=== PATIENT | male | born 1960 | race Caucasian/White ===

== ENCOUNTER 2024-03-17 16:01 | Inpatient (IN) ==
--- NOTE | 2024-03-17 16:11 | Emergency Department Note ---
Impression & Plan Syncope and collapse, Alcohol intoxication, Multiple rib fractures ED Provider Note HISTORY OF PRESENT ILLNESS: Patient is a 63-year-old male presenting after syncopal episode. Patient reportedly was at the football game when a call for EMS got sent out for "cardiac arrest." Bystanders report the patient was standing upright and then the next second he was down on the ground. No reported seizure-like activity. Patient is intoxicated and amnestic to the event. He denies any anticoagulation use. Denies any pain complaints on arrival to the ER. ROS: as above PHYSICAL EXAM: Constitutional: Patient appears in no acute distress. Patient is visibly intoxicated and slurring his speech. HENT: Head: Normocephalic and atraumatic. Eyes: EOMI, PERRL Mouth/Throat: Mucous membranes moist. Neck: Trachea midline. Neck supple. No midline cervical spine tenderness to palpation. Cardiovascular: RRR, No murmurs, rubs or gallops. Intact distal pulses. Pulmonary/Chest: No respiratory distress. Breath sounds clear and equal bilaterally. No wheezes or rales. Abdominal: Abdomen soft, no tenderness, rebound or guarding. Musculoskeletal: No edema, tenderness or deformity noted. Skin: Warm and dry. No rash, erythema, pallor or cyanosis Neurological: Alert. CN II-XII grossly intact, moving all extremities equally and fully. MDM: - Vitals signs showed hypertension - History obtained via patient and EMS, given patient's intoxication. History as above. - Chronic conditions affecting care: None - Differential diagnoses include, but are not limited to: electrolyte abnormality; intracranial hemorrhage; ACS; rib fracture; pneumothorax; PE; dissection - Order placed for continuous cardiac monitoring. At this time, monitor showed rate of 72 bpm with normal sinus rhythm, per my interpretation. - External medical records reviewed. - EKG interpreted by myself showed normal sinus rhythm. Rate 68 bpm. QT 440. No acute ischemic changes. - Laboratory workup interpreted by myself showed normal WBC; normal hemoglobin; normal PT/INR; stable electrolytes; normal troponin; elevated alcohol (413.4) - CXR negative for pneumonia, per my interpretation - CT head wo contrast negative for acute intracranial pathology - CT cervical spine wo contrast negative for acute injury - CTA chest showed acute fractures of the left seventh and eighth ribs. Noted to have a 8 x 6 mm pleural hematoma adjacent to the seventh rib fracture without any underlying pleural effusion or pneumothorax. - Considered CT abdomen/pelvis with IV contrast, but patient has no evidence of ecchymosis or injury to the abdomen and no reproducible tenderness on examination. - Patient did well with incentive spirometry and saturations remained >93% on room air. Patient syncope likely secondary to his alcohol intoxication, but he is greater than 60 years old and had no presyncopal symptoms prior to passing out. Will admit to hospital service for further evaluation. - Discussion was had with high risk case manager about patient's case and need for admission - Hospitalist, Dr. Iqbal, consulted for admission - Patient admitted to [facility] service for further evaluation and management. ASSESSMENT AND PLAN: Diagnosis: syncope and collapse; alcohol intoxication; multiple rib fractures Plan: admit Past Med/Surg History Problem List (Updated 03/17/24 @ 18:34 by Mary Berry MD) Multiple rib fractures (Acute) Alcohol intoxication (Acute) Syncope and collapse (Acute) Social History Smoking Status: Current every day smoker Preferred Language: Azeri Feels Safe at Home: Yes Home Meds Home Medications Medication Instructions Recorded Confirmed bisacodyl 5 mg tablet,delayed 20 mg PO DAILY PRN Constipation 03/17/24 03/17/24 release polyethylene glycol 3350 17 17 g PO UD 03/17/24 03/17/24 gram/dose oral powder Results & Data (ED) Vital Signs Vital Signs - 24 hr 03/17/24 16:16 03/17/24 16:26 03/17/24 16:43 Temperature 36.5 C Temperature Source Oral Pulse Rate 69 67 Pulse Rate [Apical] Pulse Rate from SpO2 Sensor Respiratory Rate 21 Blood Pressure 140/93 Blood Pressure [Left Arm] Blood Pressure Mean 108 Blood Pressure Mean [Left Arm] Blood Pressure Position Semi-fowlers Pulse Oximetry 92 Oxygen Delivery Method Room Air Room Air Sepsis Recent Fever Within 48 Hours No Sepsis New/Unexplained Change in Mental Status No Sepsis Action Taken by Nursing No Action Required 03/17/24 16:51 03/17/24 17:30 03/17/24 17:33 Temperature Temperature Source Pulse Rate 63 71 Pulse Rate [Apical] Pulse Rate from SpO2 Sensor 73 Respiratory Rate 21 25 H Blood Pressure 151/97 H Blood Pressure [Left Arm] Blood Pressure Mean 110 Blood Pressure Mean [Left Arm] Blood Pressure Position Pulse Oximetry 93 Oxygen Delivery Method Room Air Sepsis Recent Fever Within 48 Hours Sepsis New/Unexplained Change in Mental Status Sepsis Action Taken by Nursing 03/17/24 17:54 03/17/24 18:00 03/17/24 18:00 Temperature Temperature Source Pulse Rate 71 Pulse Rate [Apical] 72 Pulse Rate from SpO2 Sensor 71 Respiratory Rate 20 14 Blood Pressure 169/108 H Blood Pressure [Left Arm] 169/108 H Blood Pressure Mean 120 Blood Pressure Mean [Left Arm] 128 Blood Pressure Position Pulse Oximetry 95 93 Oxygen Delivery Method Room Air Room Air Sepsis Recent Fever Within 48 Hours Sepsis New/Unexplained Change in Mental Status Sepsis Action Taken by Nursing 03/17/24 18:30 03/17/24 18:30 Temperature Temperature Source Pulse Rate 70 Pulse Rate [Apical] Pulse Rate from SpO2 Sensor 70 Respiratory Rate 18 Blood Pressure 157/102 H Blood Pressure [Left Arm] Blood Pressure Mean 110 Blood Pressure Mean [Left Arm] Blood Pressure Position Pulse Oximetry 93 Oxygen Delivery Method Room Air Sepsis Recent Fever Within 48 Hours Sepsis New/Unexplained Change in Mental Status Sepsis Action Taken by Nursing Laboratory Data 03/17/24 16:00 03/17/24 16:00 Lab Results 03/17/24 03/17/24 Range/Units 16:00 18:30 WBC 7.35 (4.8-10.8) K/ul RBC 4.40 L (4.70-6.10) M/uL Hgb 15.5 (14.0-18.0) g/dl Hct 45.2 (42.0-52.0) % MCV 102.7 H (80.0-100.0) fL MCH 35.2 H (25.0-34.0) pg MCHC 34.3 (32.0-36.0) g/dL RDW Std Deviation 44.8 (36.4-46.3) fL RDW Coeff of [place] 11.8 (11.5-14.5) % Plt Count 185 (130-400) K/uL MPV 10.0 (9.4-12.4) fL Immature Gran % (Auto) 0.4 % Neut % (Auto) 51.2 % Lymph % (Auto) 35.5 % Millard % (Auto) 11.0 % Eos % (Auto) 1.1 % Baso % (Auto) 0.8 % Neut # (Auto) 3.76 (1.40-6.50) K/uL Lymph # (Auto) 2.61 (1.20-3.40) K/uL Millard # (Auto) 0.81 H (0.11-0.59) K/uL Eos # (Auto) 0.08 (0.00-0.50) K/uL Baso # (Auto) 0.06 (0.00-0.20) K/uL Immature Gran # (Auto) 0.03 (0.01-0.20) K/uL PT 10.9 (9.0-12.0) Seconds INR 1.0 (0.9-1.1) Sodium 141 (136-145) mmol/L Potassium 3.9 (3.5-5.1) mmol/L Chloride 106 (98-107) mmol/L Carbon Dioxide 26 (21-32) mmol/L Anion Gap 9 (3-11) BUN 10 (6-23) mg/dl Creatinine 0.80 (0.6-1.4) mg/dl Est Cr Clr Drug Dosing 126.2 ml/min eGFR 99.44 BUN/Creatinine Ratio 12.5 (10-20) Glucose 122 H (70-99(Fasting)) mg/dl Calcium 8.7 (8.6-10.3) mg/dl Magnesium 2.0 (1.7-2.4) mg/dl Total Bilirubin 0.6 (0.2-1.0) mg/dl AST 95 H (13-39) U/L ALT 49 (7-52) U/L Alkaline Phosphatase 50 (34-104) U/L Troponin I High Sens 19.7 18.1 (0-20) pg/ml Total Protein 7.7 (6.0-8.3) gm/dl Albumin 4.4 (3.4-5.0) gm/dl Globulin 3.3 (2.5-4.0) gm/dl Albumin/Globulin Ratio 1.3 (0.9-2) Ethyl Alcohol mg/dL 413.4 H (<10.0) mg/dl Administered Medications Discontinued Medications Ioversol (Optiray 320 125ml) 119 ml IV ONCE ONE Stop: 03/17/24 17:16 Last Admin: 03/17/24 17:16 Dose: 119 ml Documented By: EDK Imaging Data Radiologist's Impression: Chest X-Ray 03/17/24 16:08 EXAM: Radiograph of the Chest 1 View INDICATION: Syncope. TECHNIQUE: Frontal view of the chest. COMPARISON: No relevant prior studies available. FINDINGS: Lungs and pleural spaces: Shallow inspiration with basilar vascular crowding. There is mild superimposed atelectasis along the right heart border. No consolidation or pulmonary edema. Heart: Prominent cardiac shadow accentuated by technique and inspiratory effort. Mediastinum: Normal contour. Bones/joints: No fracture, erosion or dislocation. Soft tissues: No abnormality noted. No radiopaque foreign body noted. Upper abdomen: No abnormality noted. IMPRESSION: Minimal atelectasis right base. ACT 112: Negative or not required by law. Electronically signed by Alayna Kwan 03-17-2024 4:[address] 03/17/24 16:28 EXAM: CT Cervical Spine Without Intravenous Contrast INDICATION: Syncope versus trip and fall. TECHNIQUE: Axial computed tomography images of the cervical spine without intravenous contrast. Sagittal and coronal reformatted images were created and reviewed. This CT exam was performed using one or more of the following dose reduction techniques: automated exposure control, adjustment of the mA and/or kV according to patient size, and/or use of iterative reconstruction technique. COMPARISON: No relevant prior studies available. FINDINGS: Limitations: None. Vertebrae: There is generalized tilting of the spine to the right which may be positional. There is increased lower cervical lordosis. There is moderate to severe facet arthrosis worse on the left at all levels. There is mild to moderate spondylosis. Spondylosis most notable and associated with uncal spurring at C5-C6. No fracture or traumatic subluxation noted. Discs/spinal canal/neural foramina: There is moderate to severe disc space narrowing C5-C6 and C6-C7. Mild narrowing noted at C3-C4. There is mild central canal and moderate right foraminal stenosis at this level. Moderate to severe canal and right greater than left foraminal stenosis at C5-C6 and C6-C7. Soft tissues: No significant abnormality noted. Vasculature: Bilateral cervical carotid atherosclerotic plaque noted. Sinuses: There is chronic mucosal thickening left maxillary sinus. Lung apices: No significant abnormality noted. IMPRESSION: 1. No fracture. Significant multilevel degenerative changes are present. 2. There is chronic mucosal thickening left maxillary sinus. ACT 112: Negative or not required by law. Electronically signed by Alayna Kwan 03-17-2024 5:43 PM Chest CTA 03/17/24 16:28 EXAM: CT Angiography Chest Without and With Intravenous Contrast INDICATION: Fall. TECHNIQUE: Axial computed tomographic angiography images of the chest without and with intravenous contrast. Sagittal and coronal reformatted images were created and reviewed. This CT exam was performed using one or more of the following dose reduction techniques: automated exposure control, adjustment of the mA and/or kV according to patient size, and/or use of iterative reconstruction technique. MIP reconstructed images were created and reviewed. CONTRAST: 119ml of Optiray 320 was administered intravenously. COMPARISON: No relevant prior studies available. FINDINGS: Limitations: Assessment of lower lobe pulmonary arterial structures limited due to motion. Pulmonary arteries: No definite pulmonary embolus noted. There is limited assessment of the right lower lobe due to artifact. Aorta: There is mild calcification of the aortic valve and root. There is mild ectasia of the ascending segment without aneurysm. There is no dissection. Scattered calcific plaque noted in the descending aorta. Great vessels of aortic arch: There is mild calcific plaque at the origin of the left common carotid artery. Other arteries: There is mild proximal calcific plaque in the bilateral subclavian arteries. No dissection or aneurysm. No occlusion. Lungs and pleural spaces: See findings above and below. Heart: Global cardiomegaly. The left ventricle may be slightly hypertrophied. No significant pericardial effusion. No evidence of RV dysfunction. Bones/joints: There is an approximate 8 x 6 mm pleural hematoma subjacent to the seventh rib fracture. No pleural effusion or pneumothorax. There are acute fractures of the left eighth and ninth ribs. Old left sixth rib fracture. The sternum, visualized portions of the shoulders and the spinal segments appear intact. There is mild scoliotic curvature of the spine with diffuse mild degenerative spondylosis. Soft tissues: No abnormality noted. Lymph nodes: No abnormality noted. No enlarged lymph nodes. IMPRESSION: 1. Acute fractures left seventh and eighth ribs. 2. There is an approximate 8 x 6 mm pleural hematoma subjacent to the seventh rib fracture. No pleural effusion or pneumothorax. ACT 112: Negative or not required by law. Electronically signed by Alayna Kwan 03-17-2024 5:[address] 03/17/24 16:28 EXAM: CT Head Without Intravenous Contrast INDICATION: Syncope versus trip and fall. TECHNIQUE: Axial computed tomography images of the head/brain without intravenous contrast. Sagittal and/or coronal reformats are provided. Sagittal and coronal reformatted images were created and reviewed. This CT exam was performed using one or more of the following dose reduction techniques: automated exposure control, adjustment of the mA and/or kV according to patient size, and/or use of iterative reconstruction technique. COMPARISON: No relevant prior studies available. FINDINGS: Limitations: None. Brain and extra-axial spaces: There is age appropriate cortical atrophy and chronic ischemic periventricular white matter hypodensity. No acute infarct, hemorrhage or mass noted. Bones/joints: No acute changes. Soft tissues: No significant abnormality noted. Vasculature: No acute abnormality noted. Sinuses: Moderate chronic left maxillary sinus thickening. No layering fluid. Mastoid air cells: No mastoid effusion. Orbits: No significant abnormality noted. IMPRESSION: 1. Cerebral atrophy. No acute changes. 2. Mild to moderate chronic left maxillary sinusitis. ACT 112: Negative or not required by law. Electronically signed by Alayna Kwan 03-17-2024 5:38 PM Discharge Plan Visit Data Chief Complaint: Fall Stated Complaint: ETOH, FALL, POSSIBLE SYNCOPE, ED Provider: Mary Berry Discharge Problem: Syncope and collapse, Alcohol intoxication, Multiple rib fractures Forms Stand Alone Forms: [facility] Prescriptions Prescriptions: No Action bisacodyl 5 mg tablet,delayed release (DR/EC) 20 mg PO DAILY PRN (Reason: Constipation) Rx Instructions: UP TO 30 DAYS polyethylene glycol 3350 17 gram/dose powder 17 g PO UD Referrals Referrals: PCP,NO [Primary Care Provider] -
[2024-03-17 16:26] LABS: Basophils # (auto) 0.06 K/uL (0.00-0.20); Basophils % (auto) 0.8 %; Eosinophils # (auto) 0.08 K/uL (0.00-0.50); Eosinophils % (auto) 1.1 %; Hematocrit (blood only) 45.2 % (42.0-52.0); Hemoglobin 15.5 g/dl (14.0-18.0); Immature Granulocytes # (auto) 0.03 K/uL (0.01-0.20); Immature Granulocytes % (auto) 0.4 %; Lymphocytes # (auto) 2.61 K/uL (1.20-3.40); Lymphocytes % (auto) 35.5 %; Mean Corpuscular Hemoglobin 35.2 pg (25.0-34.0); Mean Corpuscular Hgb Conc 34.3 g/dL (32.0-36.0); Mean Corpuscular Volume 102.7 fL (80.0-100.0); Monocytes # (auto) 0.81 K/uL (0.11-0.59); Neutrophils # (auto) 3.76 K/uL (1.40-6.50); Neutrophils % (auto) 51.2 %; Platelet Count 185 K/uL (130-400); RDW Coefficient of Variation 11.8 % (11.5-14.5); RDW Standard Deviation 44.8 fL (36.4-46.3); White Blood Count 7.35 K/ul (4.8-10.8)
--- NOTE | 2024-03-17 16:38 | XRay Report ---
EXAM: Radiograph of the Chest 1 View INDICATION: Syncope. TECHNIQUE: Frontal view of the chest. COMPARISON: No relevant prior studies available. FINDINGS: Lungs and pleural spaces: Shallow inspiration with basilar vascular crowding. There is mild superimposed atelectasis along the right heart border. No consolidation or pulmonary edema. Heart: Prominent cardiac shadow accentuated by technique and inspiratory effort. Mediastinum: Normal contour. Bones/joints: No fracture, erosion or dislocation. Soft tissues: No abnormality noted. No radiopaque foreign body noted. Upper abdomen: No abnormality noted. IMPRESSION: Minimal atelectasis right base. ACT 112: Negative or not required by law. Electronically signed by Alayna Kwan 03-17-2024 4:38 PM
[2024-03-17 16:48] LABS: Albumin Globulin Ratio 1.3 (0.9-2); Albumin Level 4.4 gm/dl (3.4-5.0); BUN Creatinine Ratio 12.5 (10-20); Bilirubin,Total 0.6 mg/dl (0.2-1.0); Calcium 8.7 mg/dl (8.6-10.3); Creatinine Clr Calc Pharmacy 126.2 ml/min; Globulin 3.3 gm/dl (2.5-4.0); Potassium 3.9 mmol/L (3.5-5.1); Total Protein 7.7 gm/dl (6.0-8.3)
[2024-03-17 16:51] LABS: Prothrombin Time 10.9 Seconds (9.0-12.0)
[2024-03-17 16:56] LABS: Troponin I High Sensitivity 19.7 pg/ml (0-20)
[2024-03-17] MEDS: OPTIRAY 320 125ml IV ONE (17:16)
--- NOTE | 2024-03-17 17:38 | CT Scan Report ---
EXAM: CT Head Without Intravenous Contrast INDICATION: Syncope versus trip and fall. TECHNIQUE: Axial computed tomography images of the head/brain without intravenous contrast. Sagittal and/or coronal reformats are provided. Sagittal and coronal reformatted images were created and reviewed. This CT exam was performed using one or more of the following dose reduction techniques: automated exposure control, adjustment of the mA and/or kV according to patient size, and/or use of iterative reconstruction technique. COMPARISON: No relevant prior studies available. FINDINGS: Limitations: None. Brain and extra-axial spaces: There is age appropriate cortical atrophy and chronic ischemic periventricular white matter hypodensity. No acute infarct, hemorrhage or mass noted. Bones/joints: No acute changes. Soft tissues: No significant abnormality noted. Vasculature: No acute abnormality noted. Sinuses: Moderate chronic left maxillary sinus thickening. No layering fluid. Mastoid air cells: No mastoid effusion. Orbits: No significant abnormality noted. IMPRESSION: 1. Cerebral atrophy. No acute changes. 2. Mild to moderate chronic left maxillary sinusitis. ACT 112: Negative or not required by law. Electronically signed by Alayna Kwan 03-17-2024 5:38 PM
--- NOTE | 2024-03-17 17:44 | CT Scan Report ---
EXAM: CT Cervical Spine Without Intravenous Contrast INDICATION: Syncope versus trip and fall. TECHNIQUE: Axial computed tomography images of the cervical spine without intravenous contrast. Sagittal and coronal reformatted images were created and reviewed. This CT exam was performed using one or more of the following dose reduction techniques: automated exposure control, adjustment of the mA and/or kV according to patient size, and/or use of iterative reconstruction technique. COMPARISON: No relevant prior studies available. FINDINGS: Limitations: None. Vertebrae: There is generalized tilting of the spine to the right which may be positional. There is increased lower cervical lordosis. There is moderate to severe facet arthrosis worse on the left at all levels. There is mild to moderate spondylosis. Spondylosis most notable and associated with uncal spurring at C5-C6. No fracture or traumatic subluxation noted. Discs/spinal canal/neural foramina: There is moderate to severe disc space narrowing C5-C6 and C6-C7. Mild narrowing noted at C3-C4. There is mild central canal and moderate right foraminal stenosis at this level. Moderate to severe canal and right greater than left foraminal stenosis at C5-C6 and C6-C7. Soft tissues: No significant abnormality noted. Vasculature: Bilateral cervical carotid atherosclerotic plaque noted. Sinuses: There is chronic mucosal thickening left maxillary sinus. Lung apices: No significant abnormality noted. IMPRESSION: 1. No fracture. Significant multilevel degenerative changes are present. 2. There is chronic mucosal thickening left maxillary sinus. ACT 112: Negative or not required by law. Electronically signed by Alayna Kwan 03-17-2024 5:43 PM
--- NOTE | 2024-03-17 17:50 | CT Scan Report ---
EXAM: CT Angiography Chest Without and With Intravenous Contrast INDICATION: Fall. TECHNIQUE: Axial computed tomographic angiography images of the chest without and with intravenous contrast. Sagittal and coronal reformatted images were created and reviewed. This CT exam was performed using one or more of the following dose reduction techniques: automated exposure control, adjustment of the mA and/or kV according to patient size, and/or use of iterative reconstruction technique. MIP reconstructed images were created and reviewed. CONTRAST: 119ml of Optiray 320 was administered intravenously. COMPARISON: No relevant prior studies available. FINDINGS: Limitations: Assessment of lower lobe pulmonary arterial structures limited due to motion. Pulmonary arteries: No definite pulmonary embolus noted. There is limited assessment of the right lower lobe due to artifact. Aorta: There is mild calcification of the aortic valve and root. There is mild ectasia of the ascending segment without aneurysm. There is no dissection. Scattered calcific plaque noted in the descending aorta. Great vessels of aortic arch: There is mild calcific plaque at the origin of the left common carotid artery. Other arteries: There is mild proximal calcific plaque in the bilateral subclavian arteries. No dissection or aneurysm. No occlusion. Lungs and pleural spaces: See findings above and below. Heart: Global cardiomegaly. The left ventricle may be slightly hypertrophied. No significant pericardial effusion. No evidence of RV dysfunction. Bones/joints: There is an approximate 8 x 6 mm pleural hematoma subjacent to the seventh rib fracture. No pleural effusion or pneumothorax. There are acute fractures of the left eighth and ninth ribs. Old left sixth rib fracture. The sternum, visualized portions of the shoulders and the spinal segments appear intact. There is mild scoliotic curvature of the spine with diffuse mild degenerative spondylosis. Soft tissues: No abnormality noted. Lymph nodes: No abnormality noted. No enlarged lymph nodes. IMPRESSION: 1. Acute fractures left seventh and eighth ribs. 2. There is an approximate 8 x 6 mm pleural hematoma subjacent to the seventh rib fracture. No pleural effusion or pneumothorax. ACT 112: Negative or not required by law. Electronically signed by Alayna Kwan 03-17-2024 5:50 PM
--- NOTE | 2024-03-17 20:27 | History & Physical Report ---
Date of Service March 17, 2024 Assessment & Plan (1) Syncope and collapse: Plan: 63-year-old male with past medical history significant for high blood pressure but not any meds as per patient presents with syncope and alcohol intoxication and also found to have acute fractures of the left seventh and eighth ribs. Patient is from [place] came for football match today. Seems patient collapsed and EMS was called for cardiac arrest. When the EMS came patient was awake. And was brought in here. Alcohol level is 413. Imaging studies showed left seventh and eighth rib fractures and also 8 x 6 mm pleural hematoma subjacent to the seventh rib fracture. Patient says he did not passed out. Sees he fell down. He wanted to be discharged. But agreed to stay overnight. Denies any headache. Denies any dizziness prior to falling down. No runny nose or sore throat or cough. He has some pain in the ribs left side. No shortness of breath. No nausea. No abdominal pain. Normal bowel and bladder movements. Hemodynamics are okay. Patient says he does not smoke. Patient states he drinks alcohol occasionally mostly on the weekends. He does not drink regularly as per patient. No current use of drugs. Syncope and collapse Alcohol intoxication CT head is okay Cervical spine CT okay CTA chest left seventh and eighth rib fractures. 8x 6 mm pleural hematoma subjacent to seventh rib fracture. No pleural effusion or pneumothorax 2 sets of troponin negative Will monitor on telemetry IV fluids Serial cardiac enzymes and echo Consult cardiology in a.m. for further recommendations Alcohol intoxication Possible cause of syncope Says he does not drink regularly but seems drinks vodka daily per family thiamine and folic acid and multivitamins Gabapentin alcohol withdrawal protocol IV Ativan as needed for withdrawal symptoms Close monitor HTN says not on meds received a dose of clonidine . iv labetalol prn. Rib fractures Secondary to fractures Small pleural hematoma subjacent to seventh rib fracture Follow-up chest x-ray DVT prophylaxis SCDs for now Disposition Telemetry Full code. History of Present Illness Chief Complaint: Syncope, alcohol intoxication Primary Care Provider: NO PCP 63-year-old male with past medical history significant for high blood pressure but not any meds as per patient presents with syncope and alcohol intoxication and also found to have acute fractures of the left seventh and eighth ribs. Patient is from [place] came for football match today. Seems patient collapsed and EMS was called for cardiac arrest. When the EMS came patient was awake. And was brought in here. Alcohol level is 413. Imaging studies showed left seventh and eighth rib fractures and also 8 x 6 mm pleural hematoma subjacent to the seventh rib fracture. Patient says he did not passed out. Sees he fell down. He wanted to be discharged. But agreed to stay overnight. Denies any headache. Denies any dizziness prior to falling down. No runny nose or sore throat or cough. He has some pain in the ribs left side. No shortness of breath. No nausea. No abdominal pain. Normal bowel and bladder movements. Hemodynamics are okay. Patient says he does not smoke. Patient states he drinks alcohol occasionally mostly on the weekends. He does not drink regularly as per patient. No current use of drugs. Past medical history. As above Past surgical history. None as per patient Social history. Denies smoking. Alcohol occasional as per patient. Used to do drugs in the past ,last drug use was 15 years ago as per patient. Family history. Denies any family history. States his father is 95 years old and his mother is in the late 80s. Allergies Allergy/AdvReac Type Severity Reaction Status Date / Time No Known Allergies Allergy Unverified 03/17/24 20:56 Home Medications Medication Instructions Recorded Confirmed Type bisacodyl 5 mg tablet,delayed 20 mg PO DAILY PRN Constipation 03/17/24 03/17/24 History release polyethylene glycol 3350 17 17 g PO UD PRN Constipation 03/17/24 03/17/24 History gram/dose oral powder Past Med/Surg History Problem List (Updated 03/17/24 @ 18:34 by Mary Berry MD) Multiple rib fractures (Acute) Alcohol intoxication (Acute) Syncope and collapse (Acute) Social History Smoking Status: Current every day smoker Tobacco Type: Cigarettes Second Hand Exposure: No; Do You Dip or Chew Tobacco: No; Tobacco Cessation Education Requested by Patient: No Hx Alcohol Use: Yes Alcohol type: hard liquor Hx Substance Use: No Preferred Language: Prydeinig Communication Ability: Effective Process Developer Required: No Beliefs That Will Affect Care: None Current Living Situation: Spouse Current Living Situation Comment: lives w/ Other Information That Helps Us Care for You: No Feels Safe at Home: Yes Safety Concerns: Feels Safe At This Time Assistive Devices: None Review of Systems Review of Systems: All systems reviewed & are unremarkable except as noted in HPI & below Physical Exam Physical Exam: General- Not in acute distress. Head- atraumatic Eyes- PERRL. ENT- oropharynx clear Neck- supple, no JVD Lungs- clear to auscultation n o wheezing or crackles. Heart- regular rate and rhythm; no murmur, no gallop. Abdomen- normal bowel sounds, soft, nontender, no distension. Extremities- no pretibial edema, no erythema seen. Neuro- alert, oriented PERRL, no facial palsy; no dysarthria; moves extremities. Results & Data Results & Data Vital Signs (Past 12 Hours) Vital Signs Temp Pulse Pulse Resp BP BP Pulse Ox 03/17/24 19:00 74 19 157/105 H 92 03/17/24 18:30 157/102 H 03/17/24 18:30 70 18 93 03/17/24 18:00 169/108 H 03/17/24 18:00 72 14 169/108 H 93 03/17/24 17:54 71 20 95 03/17/24 17:33 71 25 H 93 03/17/24 17:30 151/97 H 03/17/24 16:51 63 21 03/17/24 16:43 67 03/17/24 16:26 03/17/24 16:16 36.5 C 69 21 140/93 92 O2 Del Method 03/17/24 19:00 Room Air 03/17/24 18:30 03/17/24 18:30 Room Air 03/17/24 18:00 03/17/24 18:00 Room Air 03/17/24 17:54 Room Air 03/17/24 17:33 Room Air 03/17/24 17:30 03/17/24 16:51 03/17/24 16:43 03/17/24 16:26 Room Air 03/17/24 16:16 Room Air Diagnostic Findings Laboratory Results WBC 7.35 K/ul (4.8-10.8) 03/17/24 16:00 RBC 4.40 M/uL (4.70-6.10) L 03/17/24 16:00 Hgb 15.5 g/dl (14.0-18.0) 03/17/24 16:00 Hct 45.2 % (42.0-52.0) 03/17/24 16:00 MCV 102.7 fL (80.0-100.0) H 03/17/24 16:00 MCH 35.2 pg (25.0-34.0) H 03/17/24 16:00 MCHC 34.3 g/dL (32.0-36.0) 03/17/24 16:00 RDW Std Deviation 44.8 fL (36.4-46.3) 03/17/24 16:00 RDW Coeff of Soco 11.8 % (11.5-14.5) 03/17/24 16:00 Plt Count 185 K/uL (130-400) 03/17/24 16:00 MPV 10.0 fL (9.4-12.4) 03/17/24 16:00 Immature Gran % (Auto) 0.4 % 03/17/24 16:00 Neut % (Auto) 51.2 % 03/17/24 16:00 Lymph % (Auto) 35.5 % 03/17/24 16:00 Faulk % (Auto) 11.0 % 03/17/24 16:00 Eos % (Auto) 1.1 % 03/17/24 16:00 Baso % (Auto) 0.8 % 03/17/24 16:00 Neut # (Auto) 3.76 K/uL (1.40-6.50) 03/17/24 16:00 Lymph # (Auto) 2.61 K/uL (1.20-3.40) 03/17/24 16:00 Faulk # (Auto) 0.81 K/uL (0.11-0.59) H 03/17/24 16:00 Eos # (Auto) 0.08 K/uL (0.00-0.50) 03/17/24 16:00 Baso # (Auto) 0.06 K/uL (0.00-0.20) 03/17/24 16:00 Immature Gran # (Auto) 0.03 K/uL (0.01-0.20) 03/17/24 16:00 PT 10.9 Seconds (9.0-12.0) 03/17/24 16:00 INR 1.0 (0.9-1.1) 03/17/24 16:00 Sodium 141 mmol/L (136-145) 03/17/24 16:00 Potassium 3.9 mmol/L (3.5-5.1) 03/17/24 16:00 Chloride 106 mmol/L (98-107) 03/17/24 16:00 Carbon Dioxide 26 mmol/L (21-32) 03/17/24 16:00 Anion Gap 9 (3-11) 03/17/24 16:00 BUN 10 mg/dl (6-23) 03/17/24 16:00 Creatinine 0.80 mg/dl (0.6-1.4) 03/17/24 16:00 Est Cr Clr Drug Dosing 126.2 ml/min 03/17/24 16:00 eGFR 99.44 03/17/24 16:00 BUN/Creatinine Ratio 12.5 (10-20) 03/17/24 16:00 Glucose 122 mg/dl (70-99(Fasting)) H 03/17/24 16:00 Calcium 8.7 mg/dl (8.6-10.3) 03/17/24 16:00 Magnesium 2.0 mg/dl (1.7-2.4) 03/17/24 16:00 Total Bilirubin 0.6 mg/dl (0.2-1.0) 03/17/24 16:00 AST 95 U/L (13-39) H 03/17/24 16:00 ALT 49 U/L (7-52) 03/17/24 16:00 Alkaline Phosphatase 50 U/L (34-104) 03/17/24 16:00 Troponin I High Sens 18.1 pg/ml (0-20) 03/17/24 18:30 Total Protein 7.7 gm/dl (6.0-8.3) 03/17/24 16:00 Albumin 4.4 gm/dl (3.4-5.0) 03/17/24 16:00 Globulin 3.3 gm/dl (2.5-4.0) 03/17/24 16:00 Albumin/Globulin Ratio 1.3 (0.9-2) 03/17/24 16:00 Ethyl Alcohol mg/dL 413.4 mg/dl (<10.0) H 03/17/24 16:00 Impressions Chest X-Ray 03/17/24 16:08 EXAM: Radiograph of the Chest 1 View INDICATION: Syncope. TECHNIQUE: Frontal view of the chest. COMPARISON: No relevant prior studies available. FINDINGS: Lungs and pleural spaces: Shallow inspiration with basilar vascular crowding. There is mild superimposed atelectasis along the right heart border. No consolidation or pulmonary edema. Heart: Prominent cardiac shadow accentuated by technique and inspiratory effort. Mediastinum: Normal contour. Bones/joints: No fracture, erosion or dislocation. Soft tissues: No abnormality noted. No radiopaque foreign body noted. Upper abdomen: No abnormality noted. IMPRESSION: Minimal atelectasis right base. ACT 112: Negative or not required by law. Electronically signed by Alayna Kwan 03-17-2024 4:[address] 03/17/24 16:28 EXAM: CT Cervical Spine Without Intravenous Contrast INDICATION: Syncope versus trip and fall. TECHNIQUE: Axial computed tomography images of the cervical spine without intravenous contrast. Sagittal and coronal reformatted images were created and reviewed. This CT exam was performed using one or more of the following dose reduction techniques: automated exposure control, adjustment of the mA and/or kV according to patient size, and/or use of iterative reconstruction technique. COMPARISON: No relevant prior studies available. FINDINGS: Limitations: None. Vertebrae: There is generalized tilting of the spine to the right which may be positional. There is increased lower cervical lordosis. There is moderate to severe facet arthrosis worse on the left at all levels. There is mild to moderate spondylosis. Spondylosis most notable and associated with uncal spurring at C5-C6. No fracture or traumatic subluxation noted. Discs/spinal canal/neural foramina: There is moderate to severe disc space narrowing C5-C6 and C6-C7. Mild narrowing noted at C3-C4. There is mild central canal and moderate right foraminal stenosis at this level. Moderate to severe canal and right greater than left foraminal stenosis at C5-C6 and C6-C7. Soft tissues: No significant abnormality noted. Vasculature: Bilateral cervical carotid atherosclerotic plaque noted. Sinuses: There is chronic mucosal thickening left maxillary sinus. Lung apices: No significant abnormality noted. IMPRESSION: 1. No fracture. Significant multilevel degenerative changes are present. 2. There is chronic mucosal thickening left maxillary sinus. ACT 112: Negative or not required by law. Electronically signed by Alayna Kwan 03-17-2024 5:43 PM Chest CTA 03/17/24 16:28 EXAM: CT Angiography Chest Without and With Intravenous Contrast INDICATION: Fall. TECHNIQUE: Axial computed tomographic angiography images of the chest without and with intravenous contrast. Sagittal and coronal reformatted images were created and reviewed. This CT exam was performed using one or more of the following dose reduction techniques: automated exposure control, adjustment of the mA and/or kV according to patient size, and/or use of iterative reconstruction technique. MIP reconstructed images were created and reviewed. CONTRAST: 119ml of Optiray 320 was administered intravenously. COMPARISON: No relevant prior studies available. FINDINGS: Limitations: Assessment of lower lobe pulmonary arterial structures limited due to motion. Pulmonary arteries: No definite pulmonary embolus noted. There is limited assessment of the right lower lobe due to artifact. Aorta: There is mild calcification of the aortic valve and root. There is mild ectasia of the ascending segment without aneurysm. There is no dissection. Scattered calcific plaque noted in the descending aorta. Great vessels of aortic arch: There is mild calcific plaque at the origin of the left common carotid artery. Other arteries: There is mild proximal calcific plaque in the bilateral subclavian arteries. No dissection or aneurysm. No occlusion. Lungs and pleural spaces: See findings above and below. Heart: Global cardiomegaly. The left ventricle may be slightly hypertrophied. No significant pericardial effusion. No evidence of RV dysfunction. Bones/joints: There is an approximate 8 x 6 mm pleural hematoma subjacent to the seventh rib fracture. No pleural effusion or pneumothorax. There are acute fractures of the left eighth and ninth ribs. Old left sixth rib fracture. The sternum, visualized portions of the shoulders and the spinal segments appear intact. There is mild scoliotic curvature of the spine with diffuse mild degenerative spondylosis. Soft tissues: No abnormality noted. Lymph nodes: No abnormality noted. No enlarged lymph nodes. IMPRESSION: 1. Acute fractures left seventh and eighth ribs. 2. There is an approximate 8 x 6 mm pleural hematoma subjacent to the seventh rib fracture. No pleural effusion or pneumothorax. ACT 112: Negative or not required by law. Electronically signed by Alayna Kwan 03-17-2024 5:[address] 03/17/24 16:28 EXAM: CT Head Without Intravenous Contrast INDICATION: Syncope versus trip and fall. TECHNIQUE: Axial computed tomography images of the head/brain without intravenous contrast. Sagittal and/or coronal reformats are provided. Sagittal and coronal reformatted images were created and reviewed. This CT exam was performed using one or more of the following dose reduction techniques: automated exposure control, adjustment of the mA and/or kV according to patient size, and/or use of iterative reconstruction technique. COMPARISON: No relevant prior studies available. FINDINGS: Limitations: None. Brain and extra-axial spaces: There is age appropriate cortical atrophy and chronic ischemic periventricular white matter hypodensity. No acute infarct, hemorrhage or mass noted. Bones/joints: No acute changes. Soft tissues: No significant abnormality noted. Vasculature: No acute abnormality noted. Sinuses: Moderate chronic left maxillary sinus thickening. No layering fluid. Mastoid air cells: No mastoid effusion. Orbits: No significant abnormality noted. IMPRESSION: 1. Cerebral atrophy. No acute changes. 2. Mild to moderate chronic left maxillary sinusitis. ACT 112: Negative or not required by law. Electronically signed by Alayna Kwan 03-17-2024 5:38 PM ECG Additional Comments: ECG sinus rhythm with first-degree AV block at a rate of 68. No acute ST changes seen. Code Status & VTE Plan VTE Prophylaxis Plan VTE Prophylaxis will be ordered: Yes
[2024-03-17] MEDS ORDERED: NITROGLYCERIN SL 0.4 MG/TAB TAB SL PRN (21:44)
[2024-03-17] MEDS ORDERED: GABAPENTIN 1200MG ALCOHOL WITHDRAWAL LOAD PO STA (21:44)
[2024-03-17] MEDS ORDERED: POLYETHYLENE (MIRALAX) 17 GM PACK PO PRN (21:44)
[2024-03-17] MEDS ORDERED: LORazepam 2 MG/1 ML VIAL IV PRN ×3 (21:44)
[2024-03-17] MEDS ORDERED: Ativan IV Alcohol Withdrawal--Active Protocol IV PRN (21:44)
[2024-03-17] MEDS ORDERED: INFLUENZA VACC TS2024-25(6m+)/PF (IIV3) 0.5mL Syr IM ONE (22:01)
[2024-03-17] MEDS: ACETAMINOPHEN 325 MG TAB PO PRN (22:30)
[2024-03-17] MEDS: SODIUM CHLORIDE 0.9% 1,000 ML IV SCH (22:31)
[2024-03-17] MEDS: GABAPENTIN 600 MG TAB PO ONE (22:31)
[2024-03-17] MEDS: THIAMINE HCL 100 MG in SYRINGE 9 ML IV STA (22:31)
[2024-03-17] MEDS: FOLIC ACID 1 MG in SYRINGE 9.8 ML IV STA (22:32)
[2024-03-18] MEDS: GABAPENTIN 600 MG TAB PO SCH (05:09)
[2024-03-18 06:18] LABS: Basophils # (auto) 0.04 K/uL (0.00-0.20); Basophils % (auto) 0.6 %; Eosinophils # (auto) 0.02 K/uL (0.00-0.50); Eosinophils % (auto) 0.3 %; Hematocrit (blood only) 42.4 % (42.0-52.0); Hemoglobin 14.7 g/dl (14.0-18.0); Immature Granulocytes # (auto) 0.03 K/uL (0.01-0.20); Immature Granulocytes % (auto) 0.5 %; Lymphocytes # (auto) 1.13 K/uL (1.20-3.40); Lymphocytes % (auto) 17.2 %; Mean Corpuscular Hemoglobin 35.7 pg (25.0-34.0); Mean Corpuscular Hgb Conc 34.7 g/dL (32.0-36.0); Mean Corpuscular Volume 102.9 fL (80.0-100.0); Mean Platelet Volume 10.3 fL (9.4-12.4); Monocytes # (auto) 0.85 K/uL (0.11-0.59); Neutrophils # (auto) 4.49 K/uL (1.40-6.50); Neutrophils % (auto) 68.4 %; Platelet Count 165 K/uL (130-400); RDW Coefficient of Variation 11.8 % (11.5-14.5); RDW Standard Deviation 44.9 fL (36.4-46.3); Red Blood Count 4.12 M/uL (4.70-6.10); White Blood Count 6.56 K/ul (4.8-10.8)
[2024-03-18 06:34] LABS: Albumin Globulin Ratio 1.1 (0.9-2); Albumin Level 3.7 gm/dl (3.4-5.0); BUN Creatinine Ratio 9.3 (10-20); Bilirubin Direct 0.1 mg/dl (0-0.2); Bilirubin,Total 0.8 mg/dl (0.2-1.0); Calcium 8.5 mg/dl (8.6-10.3); Creatinine Clr Calc Pharmacy 133.3 ml/min; Globulin 3.5 gm/dl (2.5-4.0); Magnesium 1.6 mg/dl (1.7-2.4); Total Protein 7.2 gm/dl (6.0-8.3)
[2024-03-18 06:40] LABS: Troponin I High Sensitivity 10.7 pg/ml (0-20)
[2024-03-18] MEDS: cloNIDine HCL 0.1 MG TAB PO ONE (06:51)
[2024-03-18] MEDS: CEROVITE ADV FORMULA TAB PO SCH (07:37)
[2024-03-18] MEDS: oxyCODONE HCL IR 5 MG TAB (IMMEDIATE RELEASE) PO STA (07:37)
[2024-03-18] MEDS: THIAMINE HCL 100 MG TAB PO SCH (07:38)
[2024-03-18] MEDS: FOLIC ACID 1 MG TAB PO SCH (07:38)
[2024-03-18] MEDS ORDERED: LABETALOL HCL IV 5 MG/ML 20ML IV PRN (07:39)
--- NOTE | 2024-03-18 07:52 | XRay Report ---
EXAM: XR chest 1V portable CLINICAL HISTORY: Pain TECHNIQUE: An X-ray image of the chest is obtained in 1 AP projection. COMPARISON: 03/17/2024 CT. FINDINGS: Pulmonary Parenchyma: Patchy opacity seen in the lower zone of the left lung. Likely suggestive of tiny pulmonary contusion. Prominent perihilar bronchovascular markings. Partial obliteration of the left costophrenic angle, likely due to mild pleural effusion. Rest of lungs are clear bilaterally with no evidence of consolidation, collapse, or focal opacities. No right sided pleural effusion. Heart and Mediastinum Increased cardiothoracic ratio, suggestive of cardiomegaly. Prominent mediastinum. No evidence of masses or significant lymphadenopathy. Bony Thorax Minimally displaced fracture lines noted in the lateral aspect of the left eighth and ninth ribs. Soft Tissues Soft tissues overlying the chest wall are unremarkable. IMPRESSION: 1. Minimally displaced fractures of the left eighth and ninth ribs. 2. Patchy pulmonary likely contusion seen in the lower zone of the left lung. 3. Mild left-sided pleural reaction. 4. Cardiomegaly. 5. Prominent perihilar vascular markings. Suggestive of pulmonary congestion. 6. No significant interval changes compared to previous recent study dated 03/17/2024. Electronically signed by Ping Salas 03-18-2024 07:52 AM
[2024-03-18 07:59] VITALS: TEMP 97.9
[2024-03-18] MEDS: IBUPROFEN 200 MG/10 ML UDC PO STA (10:06)
[2024-03-18] MEDS: FAMOTIDINE 20 MG TAB PO STA (10:06)
--- NOTE | 2024-03-18 11:08 | Discharge Summary ---
Date of Service March 18, 2024 Admission HPI Per Admitting Provider 63-year-old male with past medical history significant for high blood pressure but not any meds as per patient presents with syncope and alcohol intoxication and also found to have acute fractures of the left seventh and eighth ribs. Patient is from [place] came for football match today. Seems patient collapsed and EMS was called for cardiac arrest. When the EMS came patient was awake. And was brought in here. Alcohol level is 413. Imaging studies showed left seventh and eighth rib fractures and also 8 x 6 mm pleural hematoma subjacent to the seventh rib fracture. Patient says he did not passed out. Sees he fell down. He wanted to be discharged. But agreed to stay overnight. Denies any headache. Denies any dizziness prior to falling down. No runny nose or sore throat or cough. He has some pain in the ribs left side. No shortness of breath. No nausea. No abdominal pain. Normal bowel and bladder movements. Hemodynamics are okay. Patient says he does not smoke. Patient states he drinks alcohol occasionally mostly on the weekends. He does not drink regularly as per patient. No current use of drugs. Past medical history. As above Past surgical history. None as per patient Social history. Denies smoking. Alcohol occasional as per patient. Used to do drugs in the past ,last drug use was 15 years ago as per patient. Family history. Denies any family history. States his father is 95 years old and his mother is in the late 80s. Admission Exam Per Admitting Provider General- Not in acute distress. Head- atraumatic Eyes- PERRL. ENT- oropharynx clear Neck- supple, no JVD Lungs- clear to auscultation n o wheezing or crackles. Heart- regular rate and rhythm; no murmur, no gallop. Abdomen- normal bowel sounds, soft, nontender, no distension. Extremities- no pretibial edema, no erythema seen. Neuro- alert, oriented PERRL, no facial palsy; no dysarthria; moves extremities. Principal Diagnosis Alcohol intoxication Left sixth and seventh rib fracture Discharge Exam Constitutional: Alert oriented x 3; not in distress. Respiratory: Bilateral vesicular breath sound Cardiovascular: RRR, no murmur, no edema Vessels: no JVD or carotid bruit Chest: Tenderness on palpation of left-sided chest wall Abdomen: normal bowel sounds, soft, nontender, no hepatosplenomegaly Musculoskeletal: no cyanosis or clubbing, extremities motor strength 5/5 Skin: no rashes, warm and dry normal turgor Neurologic: PERRL, EOMI, accommodation nl, no face palsy, no dysarthria CN's II- XI intact bilaterally and moves all extremities Psychiatric: A+Ox3, euthymic affect Discharge Data Allergies Allergy/AdvReac Type Severity Reaction Status Date / Time No Known Allergies Allergy Unverified 03/17/24 20:56 Consultations 03/17/24 19:11 ED Decision to Admit Stat Ordered Studies 03/17/24 16:28 CT cervical spine wo con Stat CT head/brain wo con Stat CTA chest dissec wo/w con [CT angio chest dissec wo/w con] Stat Hospital Course (1) Syncope and collapse: 63-year-old male with past medical history significant for high blood pressure but not any meds as per patient presents with syncope and alcohol intoxication and also found to have acute fractures of the left seventh and eighth ribs. Patient blood alcohol level was 413. CT of the chest showed sixth and seventh rib fracture; no pleural effusion or pneumothorax. High sensitive troponin was negative Patient was admitted to medical floor; underwent pain control with analgesics. On the day of the discharge, patient reported improvement in pain. He was alert oriented x 3; he had no signs or symptoms of alcohol withdrawal (including tremors, hallucination). He was saturating well in room air and vitals were stable. Patient reported that he does not drink alcohol on a regular basis; only drinks it occasionally and he has no history of withdrawal. Patient reported that he wanted to go home; patient was offered to stay in the hospital for closer monitoring for hypoxia, pain management. However, patient felt that he will do better at home and wanted to get discharged. I recommended patient to call family to pick him up and advise against driving. Patient reported that he will call his friends and will not drive. I recommended him to take [id number] Tylenol and ibuprofen for pain control. Please note the above document was generated using voice recognition software. It may contain grammatical, syntax or spelling errors. Any formal questions or concerns about the content, text or information contained within the body of th is dictation should be directly addressed to the provider for clarification Total Time Total Time Spent Total Time Spent (In Minutes): 34 Total Time Includes: Examination of the Patient, Discharge Planning, Medication Reconciliation, Communication With Other Providers and Other Discharge Plan Discharge Items Patient Disposition: Home - Self-Care Reason For Visit: SYNCOPE, ALCOHOL INTOXICATION Discharge Diagnosis: Alcohol intoxication Rib fractures Activity: Resume your previous activity Non-emergency contact: Primary Care Provider Call non-emergency contact if: you have any medication questions and your symptoms worsen Follow-up/Referrals: PCP,NO [Primary Care Provider] - Diet: Regular Addtl Attending Provider Instructions: You are admitted to the hospital due to a fall. You have fracture of left eighth and ninth rib. Please take Tylenol and ibuprofen for pain control. Take deep breaths using incentive spirometry. Follow-up with your primary care doctor. Pending Studies at Discharge: No Stand-Alone Forms: [employer], Smoking Cessation Medications and DC Order Prescriptions: Continued bisacodyl 5 mg tablet,delayed release (DR/EC) 20 mg PO DAILY PRN (Reason: Constipation) Rx Instructions: UP TO 30 DAYS polyethylene glycol 3350 17 gram/dose powder 17 g PO UD PRN (Reason: Constipation) Discharge Orders: Discharge Order (Routine); Ordered 03/18/24 Ordered By: Dick Cha Admission Data Admit Date/Time: 03/17/24 20:16 Attending Provider: Dick Cha Admit Provider: Jourdan Iqbal Primary Care Provider: PCP,NO Other Providers: Jourdan Iqbal
[2024-03-18 11:15] VITALS: BP 148/88; PULSE 84; RESP 18; O2SAT 90
--- NOTE | 2024-03-18 13:08 | Electrocardiogram Report ---
Test Reason : Blood Pressure : */* mmHG Vent. Rate : 68 BPM Atrial Rate : 68 BPM P-R Int : 236 ms QRS Dur : 84 ms QT Int : 440 ms P-R-T Axes : 43 -18 -2 degrees QTcB Int : 467 ms Sinus rhythm with 1st degree A-V block Poor R wave progression, consider anterior [place] vs. lead placement vs. LVH Abnormal ECG No previous ECGs available Confirmed by Enmanuel Loza ([id number]) on 03/18/2024 1:08:21 PM Referred By: Confirmed By: Enmanuel Loza
--- NOTE | 2024-03-18 13:12 | Electrocardiogram Report ---
Test Reason : Blood Pressure : */* mmHG Vent. Rate : 69 BPM Atrial Rate : 69 BPM P-R Int : 236 ms QRS Dur : 88 ms QT Int : 438 ms P-R-T Axes : 27 -19 -1 degrees QTcB Int : 469 ms Sinus rhythm with 1st degree A-V block Otherwise normal ECG When compared with ECG of 17-Mar-2024 16:06, (unconfirmed) No significant change was found Confirmed by Enmanuel Loaz ([id number]) on 03/18/2024 1:11:44 PM Referred By: NO PCP Confirmed By: Enmanuel Loza
[2024-03-18] MEDS ORDERED: GABAPENTIN 600 MG TAB PO SCH (22:00)
[2024-03-19] MEDS ORDERED: GABAPENTIN 600 MG TAB PO SCH
[2024-03-21] MEDS ORDERED: GABAPENTIN 600 MG TAB PO SCH (12:00)
== END 2024-03-18 11:50 | disposition home or self-care (01) | DRG 897 ==
LOC: ED 16:01 → INTOOBSV 20:16 → 2S 20:16 → OBSVTOIN 20:16 → 2S 21:29